=== PATIENT | female | born 1960 | race Two or more races ===

== ENCOUNTER 2025-03-29 22:22 | Emergency (ER) | payer MEDICAID ==
[~2025-03-29] VITALS: Ht 162.6 cm; Wt 92.0 kg
[2025-03-29] MEDS ORDERED: CEPH500C PO (23:32)
--- NOTE | 2025-03-29 23:32 | ED.PDOC ---
History of Present Illness(SKN HPI Comments 65-year-old female presents to the ED chief complaint redness and pain to right lower leg. Patient states symptoms started proximally two days ago she felt like she got bit by a bug unknown type of bug. She notes increasing redness warmth swelling and pain. She denies fevers, nausea, vomiting, chills, a bdominal pain, chest pain, shortness of breath, dizziness, numbness or weakness. Chief Complaint: Insect Bite Time Seen by MD: 22:45 History of Present Illness: Nurses Notes, Medications, Allergies Home Meds Active Scripts Cephalexin Monohydrate (Cephalexin) 500 Mg Cap, 500 MG PO Q6HR for 5 Days, #20 MG Prov:JUSTINE LAROSE [employer]ERE[employer]EMENT PROGRAM COORDINATOR 03/29/25 Information Source: Patient Mode of Arrival: Ambulatory Past Medical History PAST MEDICAL HISTORY: Denies Surgical History: Denies all surgeries FAMILY COACH History: No Pertinent FAMILY COACH History Family History Family History: Reviewed,noncontributory to illness Social History Smoker: Non-Smoker Alcohol: Denies ETOH Use Drugs: Denies Drug Use All Other Systems: Reviewed and Negative (see hpi) Physical Exam General Appearance: No Apparent Distress, Normal HEENT: Pharynx Normal Neck: Full Range of Motion, Non-Tender Respiratory: Lungs Clear, No Respiratory Distress, Normal Breath Sounds Cardiovascular: No Murmur, Normal Peripheral Pulses, Regular Rate/Rhythm Breast Exam: Deferred Gastrointestinal: Non Tender, Soft Genitalia: Deferred Pelvic: Deferred Rectal: Deferred Extremities: No calf tenderness, Normal capillary refill, Normal range of motion, No pedal edema Musculoskeletal : Apperance: Normal Neurologic: Alert, No Motor Deficits, Normal Affect, Normal Mood, No Sensory Deficits Cerebellar Function: Normal Reflexes: NOT DONE Skin: Dry, Normal Color, Warm, Wounds (Right lower distal lateral leg with large patch of erythema trace edema, warmth and tenderness no noted centering opening or drainage no noted fluctuance hard to touch strength sensory motion intact positive pedal pulse) Lymphatic: No Adenopathy Was a procedure done? Was a procedure done?: No Differential Diagnosis (INTG) Differential Diagnosis: Abrasion, Cellulitis, Insect Envenomation, Puncture Wound Differential Diagnosis: Abscess X-Ray, Labs, Meds, VS Vital Signs Date Time Temp Pulse Resp B/P (MAP) Pulse Ox O2 Delivery O2 Flow Rate FiO2 03/29/25 22:29 98.4 82 1 171/10 97 98.4 X-Ray, Labs, Meds, VS Comment Infected. Patient given Rocephin 1 g IM. Script trial of Keflex advised take medication as prescribed side effects discussed. Advised to elevate for swelling. Follow up with your PCP in 2-3 days for re-evaluation or back in the ER or urgent care if unable to schedule an appointment. Advised on ER return precautions patient indicates understanding and agrees with discharge plan of care. Time of 1ST Reevaluation: 22:45 Reevaluation 1ST: Unchanged Time of 2ND Reevaluation: 23:32 Reevaluation 2ND: Improved Patient Education/Counseling: Diagnosis, Treatment, Need For Follow Up Family Education/Counseling: No Family Present SEPSIS Sepsis Screen Date sepsis recognized/suspect: Mar 29, 2025 Time Sepsis recognized/suspect: 2228 Recent Procedure: No On Antibiotic Therapy: No Respiratory Rate >20: No Heart Rate >90: No Temp<36 C (96.8 F) or >38.3 C: No SBP <90 or MAP <65 mmHG: No New Acute Mental Status Change: No Is the patient on CPAP, BIPAP,: No Physician Orders Ceftriaxone Sodium (Rocephin) (03/29/25 23:45) Lidocaine 1% (Local Anesth.) (Xylocaine (03/29/25 23:45) Vital Signs Date Time Temp Pulse Resp B/P (MAP) Pulse Ox O2 Delivery O2 Flow Rate FiO2 03/29/25 22:29 98.4 82 1 171/10 97 98.4 Departure 1 Departure Time of Disposition: 23:30 Impression: Primary Impression: Bug bite with infection Qualified Codes: W57.XXXA - Bitten or stung by nonvenomous insect and other nonvenomous arthropods, initial encounter Disposition: HOME / SELF CARE / HOMELESS Condition: Stable e-Prescriptions Cephalexin Monohydrate (Cephalexin) 500 Mg Cap 500 MG PO Q6HR for 5 Days, #20 MG Prov: JUSTINE LAROSE 03/29/25 Discharged With: Self Critical Care Note Critical Care Time?: No Stability Stability form required: No JUSTINE LAROSE Mar 29, 2025 23:32
[2025-03-29] MEDS: LIDOCAINE 1% HCL (LOCAL ANESTH.) INJ 20ML MDV ID ONE (23:57)
[2025-03-30] MEDS: cefTRIAXone SOD 1,000 MG VL IM ONE (00:05)
[2025-03-30 00:09] VITALS: BP 161/81; PULSE 75; RESP 19; TEMP 98; O2SAT 97
== END 2025-03-30 00:12 | disposition home or self-care (01) ==
LOC: ER 22:22
DX: L08.9 Local infection of the skin and subcutaneous tissue, unspecified (principal); W57.XXXA Bitten or stung by nonvenomous insect and other nonvenomous arthropods, initial encounter; Y93.89 Activity, other specified; Y92.89 Other specified places as the place of occurrence of the external cause; Y99.8 Other external cause status
CPT/HCPCS: 96372; 99283; J0696

== ENCOUNTER 2025-04-04 15:15 | Outpatient (CLI) | payer MEDICAID ==
[~2025-04-04 15:15] MED LIST: CEPH500C PO
[2025-04-04 15:34] LABS: Urine Protein, UAD TRACE (Negative)
== END 2025-04-04 17:00 | disposition home or self-care (01) ==
LOC: LAB 15:15
PROVIDERS: ATTEND Internal Medicine
DX: Z00.00 Encounter for general adult medical examination without abnormal findings (principal)
CPT/HCPCS: 81001; 82274